=== PATIENT | male | born 1985 | race Two or more races ===

== ENCOUNTER 2021-03-16 10:18 | Emergency (ER) | payer SELFPAY ==
[~2021-03-16] VITALS: Ht 190.5 cm; Wt 113.4 kg
[2021-03-16 13:51] VITALS: BP 132/84
== END 2021-03-16 14:01 | disposition home or self-care (01) ==
LOC: ER 10:18
DX: S90.822D Blister (nonthermal), left foot, subsequent encounter (principal); S90.821D Blister (nonthermal), right foot, subsequent encounter; X58.XXXD Exposure to other specified factors, subsequent encounter

== ENCOUNTER 2021-03-17 17:29 | Emergency (ER) | payer SELFPAY ==
[~2021-03-17] VITALS: Ht 190.5 cm; Wt 111.1 kg
[2021-03-17 20:47] VITALS: BP 115/86
== END 2021-03-17 20:54 | disposition home or self-care (01) ==
LOC: ER 17:29
DX: S90.822D Blister (nonthermal), left foot, subsequent encounter (principal); X58.XXXD Exposure to other specified factors, subsequent encounter